=== PATIENT | female | born 1960 | race Hispanic/Latino ===

== ENCOUNTER 2018-04-16 06:42 | Day surgery (SDC) | payer OTHER ==
[2018-04-16] MEDS ORDERED: Lactated Ringer's 500 ML IV ONE (07:14)
[2018-04-16 07:15] VITALS: BMI 23.2
[2018-04-16] MEDS ORDERED: Propofol 10 mg/ml Inj (20 ML) ONE (07:39)
[2018-04-16 09:03] VITALS: TEMP 97; O2SAT 100
[2018-04-16 09:18] VITALS: BP 113/70; PULSE 69; RESP 16
== END 2018-04-16 12:15 | disposition home or self-care (01) ==
LOC: H.ENDO 06:42
PROVIDERS: ATTEND Internal Medicine Gastroenterology
DX: Z12.11 Encounter for screening for malignant neoplasm of colon (principal); E78.5 Hyperlipidemia, unspecified; I10 Essential (primary) hypertension; Z85.3 Personal history of malignant neoplasm of breast; K64.1 Second degree hemorrhoids
CPT/HCPCS: 45378; J2001; J2704; J7120